=== PATIENT | male | born 1955 | race Caucasian/White ===

== ENCOUNTER → 2022-09-11 09:42 | Outpatient (CLI) | payer MEDICARE, MEDICAID, SELFPAY ==
--- NOTE | 2022-09-11 09:43 | CT_ITS ---
FINAL REPORT TECHNIQUE: Axial CT images of the chest were obtained without contrast. Low-dose protocol was utilized. This study was performed with techniques to keep radiation doses as low as reasonably achievable (ALARA). Individualized dose reduction techniques using automated exposure control or adjustment of mA and/or kV according to the patient's size were employed. CLINICAL HISTORY: lung cancer screening, 1 ppd x 22 years COMPARISON: None FINDINGS: CT CHEST WITHOUT, LOW DOSE SCREENING CT Di Vol: 2.90 mGy DLP: 104.20 mGy*cm The right lobe of the thyroid is enlarged with possible mass. There are small mediastinal nodes. The heart size is normal. There is no pleural or pericardial effusion. The lung windows show right lower lobe 3 mm nodule seen on image 53. There is mild scarring. There is mild left posterior pleural thickening.. Limited images of the upper abdomen are unremarkable. IMPRESSION: Right lower lobe nodule. LR Category 2 S: 12 month follow-up low-dose chest CT is recommended. Modifier S: Enlarged right thyroid lobe. Recommend thyroid ultrasound for further evaluation Reviewed, Interpreted and Dictated by Quang Le III, MD Transcribed by Vanessa Yun Authenticated and [facility]
== END ==
PROVIDERS: PCP Nurse Practitioner Family; Visit Provider Nurse Practitioner Family
DX: Z87.891 Personal history of nicotine dependence (principal); Z12.2 Encounter for screening for malignant neoplasm of respiratory organs
CPT/HCPCS: 71271

== ENCOUNTER → 2022-09-17 13:23 | Outpatient (CLI) | payer MEDICARE, MEDICAID, SELFPAY ==
--- NOTE | 2022-09-17 13:24 | US_ITS ---
FINAL REPORT CLINICAL HISTORY: enlarged right thyroid lobe noted on CT chest. FINDINGS: THYROID ULTRASOUND The right lobe of the thyroid measures 5.8 x 2.8 x 2.6 cm. The left lobe of the thyroid measures 5.0 x 1.7 x 1.6 cm. The parenchyma shows normal echogenicity. There is a cystic and mostly solid mass in the right lobe of the thyroid measuring 3.9 x 3.4 x 3.2 cm. This is solid isoechoic consistent with a TI-RADS 3. Recommend ultrasound-guided FNA. In the right lobe is a 7 x 9 x 5 mm solid isoechoic TI-RADS 3 nodule. In the left lobe of the thyroid is a 10 x 14 x 10 mm solid isoechoic TI-RADS 3 nodule. Also in the left lobe of the thyroid is a 5 x 5 x 3 mm solid hypoechoic TI-RADS 4 nodule. There is a 17 x 9 x 11 mm hypoechoic mass adjacent to the lower left lobe of the thyroid that may represent a parathyroid adenoma or other mass. IMPRESSION: Multiple bilateral thyroid nodules. Recommend ultrasound-guided FNA of the right thyroid 3.9 cm mass. Reviewed, Interpreted and Dictated by Quang Le III, MD Transcribed by Teo Flores Authenticated and [facility]
== END ==
PROVIDERS: PCP Nurse Practitioner Family; Visit Provider Nurse Practitioner Family
DX: E04.9 Nontoxic goiter, unspecified (principal)
CPT/HCPCS: 76536

== ENCOUNTER → 2022-11-04 13:53 | Outpatient (CLI) | payer MEDICARE, MEDICAID, SELFPAY ==
[2022-11-04 18:49] LABS: Barbiturates Screen,Urine Negative ng/ml (<200)
[2022-11-04 18:50] LABS: Amphetamine/Metha Screen,Urine Negative ng/ml (<1000); Benzodiazepines Screen,Urine Positive ng/ml (<200)
[2022-11-04 18:51] LABS: Methadone Screen,Urine Negative ng/ml (<300)
[2022-11-04 18:52] LABS: Cannabinoid Screen,Urine Positive ng/ml (<50); Cocaine Screen,Urine Negative ng/ml (<300)
[2022-11-04 18:53] LABS: Opiate Screen,Urine Negative ng/ml (<300); Phencyclidine Screen,Urine Negative ng/ml (<25)
== END ==
PROVIDERS: PCP Emergency Medicine; Visit Provider Emergency Medicine
DX: Z79.899 Other long term (current) drug therapy (principal)
CPT/HCPCS: 80305

== ENCOUNTER → 2023-01-31 12:00 | Outpatient (CLI) | payer MEDICARE, MEDICAID, SELFPAY ==
[2023-01-31 19:18] LABS: Amphetamine/Metha Screen,Urine Negative ng/ml (<1000); Benzodiazepines Screen,Urine Positive ng/ml (<200)
[2023-01-31 19:19] LABS: Barbiturates Screen,Urine Negative ng/ml (<200)
[2023-01-31 19:20] LABS: Cannabinoid Screen,Urine Negative ng/ml (<50); Methadone Screen,Urine Negative ng/ml (<300)
[2023-01-31 19:21] LABS: Cocaine Screen,Urine Negative ng/ml (<300)
[2023-01-31 19:22] LABS: Opiate Screen,Urine Negative ng/ml (<300)
[2023-01-31 19:23] LABS: Phencyclidine Screen,Urine Negative ng/ml (<25)
== END ==
LOC: LAB.DROPOF 02-01 00:09
PROVIDERS: PCP Emergency Medicine; Visit Provider Emergency Medicine
DX: Z79.899 Other long term (current) drug therapy (principal)
CPT/HCPCS: 80305

== ENCOUNTER → 2023-02-06 12:15 | Outpatient (CLI) | payer MEDICARE, MEDICAID, SELFPAY ==
--- NOTE | 2023-02-06 12:21 | XR_ITS ---
FINAL REPORT CLINICAL HISTORY: sinus pressure FINDINGS: Sinuses Three views were obtained. The paranasal sinuses are well aerated. No fluid levels identified. IMPRESSION: No acute process. Reviewed, Interpreted and Dictated by Quang Le III, MD Transcribed by Marita Moseley Authenticated and [facility]
--- NOTE | 2023-02-06 12:21 | XR_ITS ---
FINAL REPORT TECHNIQUE: 3 views CLINICAL HISTORY: fall FINDINGS: There is no fracture present. There is no malalignment. There are mild degenerative changes with small osteophytes. IMPRESSION: No acute process. Reviewed, Interpreted and Dictated by Quang Le III, MD Transcribed by Marita Moseley Authenticated and [facility]
== END ==
PROVIDERS: PCP Emergency Medicine; Visit Provider Family Medicine
DX: M54.9 Dorsalgia, unspecified (principal); J32.9 Chronic sinusitis, unspecified; M54.6 Pain in thoracic spine
CPT/HCPCS: 70220; 72072

== ENCOUNTER → 2023-02-14 06:52 | Outpatient (CLI) | payer MEDICARE, MEDICAID, SELFPAY ==
[2023-02-14 18:06] LABS: Adenovirus,PCR Not Detected (NotDetected); Bordetella Pertussis Not Detected (NotDetected); Chlamydophila Pneumoniae, PCR Not Detected (NotDetected); Coronavirus 19, PCR Not Detected (NotDetected); Coronavirus 229E Not Detected (NotDetected); Coronavirus NL63 Not Detected (NotDetected); Coronavirus OC43 Not Detected (NotDetected); Coronovirus HKU1,PCR Not Detected (NotDetected); Human Metapneumovirus Not Detected (NotDetected); Influenza A, PCR Not Detected (NotDetected); Influenza AH1, 2009 Not Detected (NotDetected); Influenza AH1, PCR Not Detected (NotDetected); Influenza AH3,PCR Not Detected (NotDetected); Influenza B, PCR Not Detected (NotDetected); Mycoplasma Pneumoniae, PCR Not Detected (NotDetected); Parainfluenza 1, PCR Not Detected (NotDetected); Parainfluenza 2, PCR Not Detected (NotDetected); Parainfluenza 3, PCR Not Detected (NotDetected); Parainfluenza 4, PCR Not Detected (NotDetected); Respiratory Syncytial Virus Not Detected (NotDetected); Rhinovirus/Enterovirus Not Detected (NotDetected)
== END ==
LOC: LAB.DROPOF 03-05 06:52
PROVIDERS: PCP Emergency Medicine; Visit Provider Emergency Medicine
DX: R06.02 Shortness of breath (principal); J32.9 Chronic sinusitis, unspecified; J34.89 Other specified disorders of nose and nasal sinuses; J02.9 Acute pharyngitis, unspecified; R09.89 Other specified symptoms and signs involving the circulatory and respiratory systems; R05.1 Acute cough; F17.210 Nicotine dependence, cigarettes, uncomplicated; R68.89 Other general symptoms and signs; R09.81 Nasal congestion
CPT/HCPCS: 87581; 87632; 87798

== ENCOUNTER → 2023-04-02 23:31 | Outpatient (CLI) | payer MEDICARE, MEDICAID, SELFPAY ==
[2023-04-02 20:22] LABS: Basophils # 0.1 K/mm3 (0-0.2); Basophils % 0.6 % (0.1-2.0); Eosinophils # 0.7 K/mm3 (0.0-0.4); Eosinophils % 8.8 % (0.1-12.0); Hematocrit 42.1 % (42.0-52.0); Hemoglobin 14.8 g/dL (14.1-18.0); Lymphocytes # 3.3 K/mm3 (0.7-4.5); Lymphocytes % 39.6 % (10-50); Mean Corpuscular Hemoglobin 32.9 pg (27.0-31.2); Mean Platelet Volume 11.3 fl (7.4-10.4); Monocytes # 0.4 K/mm3 (0.1-1.0); Monocytes % 4.5 % (1.7-9.3); Neutrophils # 3.9 K/mm3 (1.8-7.8); Neutrophils % 46.5 % (37.0-80.0); Platelet Count 231 K/mm3 (142-424); Red Blood Count 4.48 M/mm3 (4.60-6.20); Red Cell Distribution Width 12.4 % (11.5-17.5); White Blood Count 8.4 K/mm3 (4.8-10.8)
[2023-04-02 20:28] LABS: Alanine Aminotransferase 24 U/L (12-78); Albumin Level 4.5 g/dl (3.5-5.0); Albumin/Globulin Ratio 1.6 (1.1-1.8); Alkaline Phosphatase 100 U/L (38-126); Anion Gap 11.9 mEq/L (5-15); Aspartate Amino Transferase 27 U/L (17-59); Bilirubin,Total 0.4 mg/dl (0.2-1.3); Blood Urea Nitrogen 18 mg/dl (9-20); Calcium 9.1 mg/dl (8.4-10.2); Carbon Dioxide 27 mmol/L (22.0-30.0); Chloride 107 mmol/L (98-107); Chol/HDL Ratio 4.4 (1-3.5); Cholesterol 122 mg/dl (140-200); Estimated Glomerular Filt Rate 84 ml/min (>60); GFR (African American) 102 ML/MIN (>60); Globulin 2.8 g/dL (1.3-3.2); Glucose 97 mg/dl (74-100); HDL Cholesterol 28 mg/dl (40-60); Potassium 3.9 mmoL/L (3.5-5.1); Sodium 142 mmol/L (136-145); Total Protein,Serum 7.3 g/dl (6.3-8.2); Triglycerides 163 mg/dl (30-150); VLDL Cholesterol 33 mg/dL (0-40)
[2023-04-02 20:39] LABS: Direct LDL Cholesterol 67.73 mg/dL (100-129)
[2023-04-02 20:47] LABS: 25-OH Vitamin D, Total 31.6 ng/mL (30-100)
[2023-04-02 21:00] LABS: Prostate Specific Ag Screen 0.4 ng/ml (0.0-4.0); Thyroid Stimulating Hormone 1.63 uIU/mL (0.465-4.68)
[2023-04-02 21:23] LABS: Benzodiazepines Screen,Urine Positive ng/ml (<200)
[2023-04-02 21:24] LABS: Cannabinoid Screen,Urine Positive ng/ml (<50)
[2023-04-02 21:25] LABS: Barbiturates Screen,Urine Negative ng/ml (<200); Cocaine Screen,Urine Negative ng/ml (<300)
[2023-04-02 21:26] LABS: Methadone Screen,Urine Negative ng/ml (<300)
[2023-04-02 21:27] LABS: Opiate Screen,Urine Negative ng/ml (<300)
[2023-04-02 21:28] LABS: Phencyclidine Screen,Urine Negative ng/ml (<25)
[2023-04-02 22:08] LABS: Amphetamine/Metha Screen,Urine Negative ng/ml (<1000)
== END ==
PROVIDERS: PCP Emergency Medicine; Visit Provider Emergency Medicine
DX: I10 Essential (primary) hypertension (principal); J32.9 Chronic sinusitis, unspecified; F41.9 Anxiety disorder, unspecified; Z79.899 Other long term (current) drug therapy; Z12.5 Encounter for screening for malignant neoplasm of prostate; E55.9 Vitamin D deficiency, unspecified; Z68.23 Body mass index [BMI] 23.0-23.9, adult; Z72.0 Tobacco use
CPT/HCPCS: 80053; 80061; 80305; 82306; 84436; 84443; 85025; G0103

== ENCOUNTER → 2023-04-22 08:32 | Outpatient (CLI) | payer MEDICARE, MEDICAID, SELFPAY ==
--- NOTE | 2023-04-22 08:33 | MR_ITS ---
FINAL REPORT CLINICAL HISTORY: back pain, RIGHT LEG PAIN, NUMBNESS AND TINGLING FINDINGS: Multiplanar MR imaging of the lumbar spine was performed without contrast. On the sagittal T2-weighted images, disc degeneration is seen at multiple levels. There are Schmorl's nodes at multiple levels. There is grade 1 anterolisthesis of L5 on S1 measuring 7 mm. Note is made of several hemangiomas. There is no evidence of fracture. The conus has an unremarkable appearance. T12-L1: There is no significant canal stenosis or neural foraminal narrowing. L1-2: An annular bulge and facet arthropathy are present. There is no significant canal stenosis or neural foraminal narrowing. L2-3: An annular bulge is present. Facet arthropathy and osteophytes are present. There is mild bilateral neural foraminal narrowing. L3-4: An annular bulge and facet arthropathy are present. There is mild right neural foraminal narrowing. L4-5: An annular bulge and facet arthropathy are present. There is mild bilateral neural foraminal narrowing. L5-S1: An annular bulge and facet arthropathy are present. There are bilateral L5 pars defects with grade 1 anterolisthesis of L5 on S1. There is moderate right and mild left neural foraminal narrowing. IMPRESSION: Multilevel degenerative disc disease and spondylolisthesis with grade 1 anterolisthesis of L5 on S1. Bilateral L5 pars defects. Reviewed, Interpreted and Dictated by Quang Le III, MD Transcribed by Marita Moseley Authenticated and [facility]
--- NOTE | 2023-04-22 09:30 | US_ITS ---
FINAL REPORT CLINICAL HISTORY: E04.1 - Nontoxic single thyroid nodule - MARTIN GORDON -- RT SIDE X 5 FINDINGS: Ultrasound guided thyroid biopsy. HISTORY: Right thyroid mass. PROCEDURE: After informed consent was obtained and a time-out was performed, the patient was prepped and draped in usual sterile fashion over the right neck. Utilizing local anesthesia and sterile technique with a 25-gauge needle, access to lesion was obtained. A total of 5 passes were made under direct ultrasound guidance. The patient received no conscious sedation. The patient tolerated procedure well and left the department in good condition. IMPRESSION: Status post ultrasound guided biopsy of thyroid without immediate complication. Films reviewed , interpreted and dictated by Dr. Le. Transcribed by Martin Samayoa PA-C. Reviewed, Interpreted and Dictated by Quang Le III, MD Transcribed by EVAN Granger Authenticated and [facility]
--- NOTE | 2023-04-22 09:38 | CT_ITS ---
FINAL REPORT TECHNIQUE: Axial CT images were obtained through the sinuses/facial bones. Coronal reformats were obtained. This study was performed with techniques to keep radiation doses as low as reasonably achievable (ALARA). Individualized dose reduction techniques using automated exposure control or adjustment of mA and/or kV according to the patient's size were employed. CLINICAL HISTORY: sinus pressure, fluid in ears FINDINGS: There is mild mucosal thickening in multiple sinuses. There are no air-fluid levels. The right ostiomeatal unit is clear. There is narrowing of the left maxillary ostia and infundibula secondary to mucosal thickening. The nasal septum is not significantly deviated. No fractures are identified. IMPRESSION: Mild sinusitis. No air-fluid levels. Reviewed, Interpreted and Dictated by Quang Le III, MD Transcribed by Teo Flores Authenticated and [facility]
== END ==
PROVIDERS: PCP Emergency Medicine; Visit Provider Family Medicine
DX: G89.29 Other chronic pain (principal); M54.30 Sciatica, unspecified side; M54.9 Dorsalgia, unspecified; W19.XXXA Unspecified fall, initial encounter; M54.50 Low back pain, unspecified; E04.1 Nontoxic single thyroid nodule; J34.89 Other specified disorders of nose and nasal sinuses; Z79.899 Other long term (current) drug therapy
CPT/HCPCS: 10005; 70486; 72148; 76376; 80305; 88173; 88305

== ENCOUNTER → 2023-04-22 09:02 | Outpatient (CLI) | payer MEDICARE, MEDICAID, SELFPAY ==
[2023-04-22 20:40] LABS: Amphetamine/Metha Screen,Urine Negative ng/ml (<1000); Barbiturates Screen,Urine Negative ng/ml (<200)
[2023-04-22 20:41] LABS: Benzodiazepines Screen,Urine Positive ng/ml (<200); Cannabinoid Screen,Urine Negative ng/ml (<50)
[2023-04-22 20:42] LABS: Cocaine Screen,Urine Negative ng/ml (<300)
[2023-04-22 20:43] LABS: Methadone Screen,Urine Negative ng/ml (<300)
[2023-04-22 20:44] LABS: Opiate Screen,Urine Negative ng/ml (<300)
[2023-04-22 20:45] LABS: Phencyclidine Screen,Urine Negative ng/ml (<25)
== END ==
PROVIDERS: PCP Emergency Medicine; Visit Provider Emergency Medicine
DX: Z79.899 Other long term (current) drug therapy (principal)
CPT/HCPCS: 80305